=== PATIENT | male | born 1965 | race Hispanic/Latino ===

== ENCOUNTER 2017-10-14 17:13 | Emergency (ER) | payer SELFPAY ==
[2017-10-14 17:21] VITALS: BP 121/65; PULSE 85; RESP 18; TEMP 97.7; O2SAT 99
--- NOTE | 2017-10-14 17:51 | C.PDOC ---
History Of Present Illness 52 y/o male 2 weeks s/p abdominal surgery for ruptured ulcer, coming to ED to have sutures removed. [place] [facility] [place] the [place] area and was advised he could get the sutures removed at any hospital. Patient also c/o right shoulder arm numbness since surgery. Patient denies abdominal pain, weakness, fever, and offers no other medical complaints. Time Seen by Provider: 10/14/17 17:29 Chief Complaint (Nursing): Upper Extremity Problem/Injury History Per: Patient History/Exam Limitations: no limitations Onset/Duration Of Symptoms: Days Ago Location Of Injury: Right: Shoulder, Anterior: Abdomen Past Medical History Reviewed: Historical Data, Nursing Documentation, Vital Signs Vital Signs: Last Vital Signs Temp 97.7 F 10/14/17 17:17 Pulse 85 10/14/17 17:17 Resp 18 10/14/17 17:17 BP 121/65 10/14/17 17:17 Pulse Ox 99 10/14/17 18:01 - Medical History PMH: Arthritis Family History: States: No Known Family Hx - Social History Hx Alcohol Use: No Hx Substance Use: No - Immunization History Hx Tetanus Toxoid Vaccination: Yes Hx Influenza Vaccination: Yes Hx Pneumococcal Vaccination: No Review Of Systems Constitutional: Negative for: Fever, Weakness Gastrointestinal: Negative for: Abdominal Pain Musculoskeletal: Positive for: Shoulder Pain Neurological: Positive for: Numbness (right arm ). Negative for: Weakness Physical Exam - Physical Exam Appears: Non-toxic, No Acute Distress Skin: Warm, Dry Head: Atraumatic, Normacephalic Eye(s): bilateral: Normal Inspection Neck: Supple Chest: Symmetrical Cardiovascular: Rhythm Regular Respiratory: Normal Breath Sounds Gastrointestinal/Abdominal: Normal Exam (abdominal incision was clean, dry and intact. ), Soft, No Guarding, No Rebound Extremity: Normal ROM, No Swelling Neurological/Psych: Oriented x3 Gait: Steady ED Course And Treatment O2 Sat by Pulse Oximetry: 99 (RA) Pulse Ox Interpretation: Normal Progress Note: Sutures removed with removal kit. patient tolerated procedure well. Instructed to follow with PMD in the next 2-3 days. Medical Decision Making Medical Decision Making: for suture removal, also c/o of right arm numbness since surgery. offered labs and dimer to exclde metabolic, blood clot etiology. refuses, states will follow up outpt. Disposition - Disposition Referrals: [facility] [Outside] [facility] [Outside] Disposition: HOME/ ROUTINE Disposition Time: 06:00 Condition: GOOD Additional Instructions: return to er with worsening symptoms or concerns. please follow up with your doctor/clinic. you are declining lab work at this time, however you are able to return to any er with any worsening symptoms at any time. Instructions: Stitches Removal, Paresthesias (DC) Forms: [employer] (Malay) - Clinical Impression Clinical Impression: Numbness, Removal of suture - Scribe Statement The provider has reviewed the documentation as recorded by the Becca Patel Andres Provider Attestation: All medical record entries made by the Becca were at my direction and personally dictated by me. I have reviewed the chart and agree that the record accurately reflects my personal performance of the history, physical exam, medical decision making, and the department course for this patient. I have also personally directed, reviewed, and agree with the discharge instructions and disposition.
== END 2017-10-14 18:09 | disposition home or self-care (01) ==
LOC: C.ER 17:13
DX: Z48.02 Encounter for removal of sutures (principal); R20.0 Anesthesia of skin